=== PATIENT | female | born 1940 | race Caucasian/White ===

== ENCOUNTER 2017-12-23 05:53 | Day surgery (SDC) | payer OTHER, BC ==
[2017-12-20 15:37] VITALS: BMI 27.4
[2017-12-23] MEDS ORDERED: KETAMINE HCL 500 MG/10 ML VIAL ONE (09:23)
[2017-12-23] MEDS ORDERED: ONDANSETRON 4 MG/2 ML VIAL IVPUSH PRN (09:27)
[2017-12-23 10:38] VITALS: TEMP 97.6
[2017-12-23 12:02] VITALS: BP 138/76; PULSE 68
== END 2017-12-23 11:30 | disposition home or self-care (01) ==
LOC: FECT 05:53
PROVIDERS: ATTEND Psychiatry & Neurology Psychiatry
PROC: GZB4ZZZ Other Electroconvulsive Therapy (ICD-10-PCS; principal; 2017-12-23 07:45)
DX: F33.2 Major depressive disorder, recurrent severe without psychotic features (principal)
CPT/HCPCS: 90870; 94760

== ENCOUNTER 2017-12-30 05:49 | Day surgery (SDC) | payer OTHER, BC ==
[2017-12-26 17:58] VITALS: BMI 27.4
[2017-12-30] MEDS ORDERED: ONDANSETRON 4 MG/2 ML VIAL IVPUSH PRN (07:35)
[2017-12-30 09:01] VITALS: TEMP 98.2
[2017-12-30] MEDS ORDERED: KETAMINE HCL 500 MG/10 ML VIAL ONE (09:24)
[2017-12-30 11:39] VITALS: BP 155/75; PULSE 69
== END 2017-12-30 11:40 | disposition home or self-care (01) ==
LOC: FECT 05:49
PROVIDERS: ATTEND Psychiatry & Neurology Psychiatry
PROC: GZB4ZZZ Other Electroconvulsive Therapy (ICD-10-PCS; principal; 2017-12-30 07:45)
DX: F33.2 Major depressive disorder, recurrent severe without psychotic features (principal)
CPT/HCPCS: 90870; 94760

== ENCOUNTER 2018-01-04 05:46 | Day surgery (SDC) | payer OTHER, BC ==
[2017-12-27 09:39] VITALS: BMI 27.4
[2018-01-04] MEDS ORDERED: KETAMINE HCL 500 MG/10 ML VIAL ONE (08:30)
[2018-01-04] MEDS ORDERED: ACETAMINOPHEN 325 MG TABLET (FP) ONE (10:29)
[2018-01-04 10:46] VITALS: BP 142/70; PULSE 64; TEMP 98
== END 2018-01-04 10:47 | disposition home or self-care (01) ==
LOC: FECT 05:46
PROVIDERS: ATTEND Psychiatry & Neurology Psychiatry
PROC: GZB4ZZZ Other Electroconvulsive Therapy (ICD-10-PCS; principal; 2018-01-04 07:45)
DX: F33.2 Major depressive disorder, recurrent severe without psychotic features (principal)
CPT/HCPCS: 90870; 94760

== ENCOUNTER 2018-01-06 05:45 | Day surgery (SDC) | payer OTHER, BC ==
[2018-01-05 11:14] VITALS: BMI 27.4
[2018-01-06 08:40] VITALS: TEMP 98.1
[2018-01-06] MEDS ORDERED: KETAMINE HCL 500 MG/10 ML VIAL ONE (09:42)
[2018-01-06] MEDS ORDERED: ONDANSETRON 4 MG/2 ML VIAL ONE (09:46)
[2018-01-06] MEDS ORDERED: ACETAMINOPHEN 325 MG TABLET (FP) PO ONE (09:53)
[2018-01-06 11:18] VITALS: BP 134/75; PULSE 69
== END 2018-01-06 11:10 | disposition home or self-care (01) ==
LOC: FECT 05:45
PROVIDERS: ATTEND Psychiatry & Neurology Psychiatry
PROC: GZB4ZZZ Other Electroconvulsive Therapy (ICD-10-PCS; principal; 2018-01-06 07:45)
DX: F33.2 Major depressive disorder, recurrent severe without psychotic features (principal)
CPT/HCPCS: 90870; 94760

== ENCOUNTER 2018-01-11 05:43 | Day surgery (SDC) | payer OTHER, BC ==
[2018-01-09 16:28] VITALS: BMI 27.4
[2018-01-11] MEDS ORDERED: ACETAMINOPHEN 325 MG TABLET (FP) PO PRN (07:10)
[2018-01-11] MEDS ORDERED: KETAMINE HCL 500 MG/10 ML VIAL ONE (07:35)
[2018-01-11 09:09] VITALS: TEMP 98.2
[2018-01-11 09:48] VITALS: BP 150/78; PULSE 64
== END 2018-01-11 09:51 | disposition home or self-care (01) ==
LOC: FECT 05:43
PROVIDERS: ATTEND Psychiatry & Neurology Psychiatry
PROC: GZB4ZZZ Other Electroconvulsive Therapy (ICD-10-PCS; principal; 2018-01-11 07:15)
DX: F33.2 Major depressive disorder, recurrent severe without psychotic features (principal)
CPT/HCPCS: 90870; 94760

== ENCOUNTER 2018-01-13 05:45 | Day surgery (SDC) | payer OTHER, BC ==
[2018-01-12 13:35] VITALS: BMI 27.4
[2018-01-13] MEDS ORDERED: KETAMINE HCL 500 MG/10 ML VIAL ONE (08:35)
[2018-01-13 10:08] VITALS: TEMP 97.7
[2018-01-13 10:26] VITALS: BP 141/81; PULSE 69
== END 2018-01-13 10:55 | disposition home or self-care (01) ==
LOC: FECT 05:45
PROVIDERS: ATTEND Psychiatry & Neurology Psychiatry
PROC: GZB4ZZZ Other Electroconvulsive Therapy (ICD-10-PCS; principal; 2018-01-13 07:15)
DX: F33.2 Major depressive disorder, recurrent severe without psychotic features (principal)
CPT/HCPCS: 90870; 94760

== ENCOUNTER 2018-01-16 05:36 | Day surgery (SDC) | payer OTHER, BC ==
[2018-01-13 15:06] VITALS: BMI 27.4
[2018-01-16] MEDS ORDERED: KETAMINE HCL 500 MG/10 ML VIAL ONE (08:58)
[2018-01-16 10:29] VITALS: TEMP 97.4
[2018-01-16 13:01] VITALS: BP 128/78; PULSE 66
== END 2018-01-16 11:00 | disposition home or self-care (01) ==
LOC: FECT 05:36
PROVIDERS: ATTEND Psychiatry & Neurology Psychiatry
PROC: GZB4ZZZ Other Electroconvulsive Therapy (ICD-10-PCS; principal; 2018-01-16 07:00)
DX: F33.2 Major depressive disorder, recurrent severe without psychotic features (principal)
CPT/HCPCS: 90870; 94760

== ENCOUNTER 2018-01-23 05:35 | Day surgery (SDC) | payer OTHER, BC ==
[2018-01-18 15:28] VITALS: BMI 27.4
[2018-01-23 07:37] VITALS: TEMP 98
--- NOTE | 2018-01-23 07:41 | HP ---
Admitting History and Physical - Admission History of Present Illness: patient is a 77-year-old female, with a past medical history of anxiety, depression, hypertension, and pulmonary fibrosis. Patient presents for ECT, her last ECT was 01/20/2018. Patient has been undergoing ECT sinceJuly 2017. patient reports feeling well she reports minimal improvement to depressive symptoms since starting a ECT patient denies any suicidal or homicidal ideation. patient reports compliance with prescribed medication. Patient denies any recent illnesses or hospitalizations. History Source: Patient Limitations to Obtaining History: No Limitations - Smoking History Smoking history: Former smoker Have you smoked in the past 12 months: No If you are a former smoker, when did you quit?: S - Alcohol/Substance Use Hx Alcohol Use: No History of Substance Use: reports: None - Social History ADL: Independent History of Recent Travel: No Home Medications - Allergies Allergies/Adverse Reactions: Allergies Allergy/AdvReac Type Severity Reaction Status Date / Time No Known Drug Allergies Allergy Verified 01/06/18 08:35 - Home Medications Home Medications: Ambulatory Orders Atorvastatin Ca [Lipitor] 10 mg PO HS 12/16/17 Clonazepam 1 mg PO TID 12/16/17 Diltiazem Cd [Cardizem Cd -] 120 mg PO DAILY 12/16/17 Docusate Sodium [Colace] 100 mg PO BID 12/16/17 Lisinopril [Zestril] 5 mg PO DAILY 12/16/17 Mirtazapine [Remeron -] 15 mg PO DAILY 12/16/17 Mirtazapine [Remeron -] 30 mg PO HS 12/16/17 Multivitamin/Iron/Folic Acid [Centrum Adults Tablet] 1 each PO DAILY 12/16/17 Pantoprazole Sodium [Protonix] 40 mg PO DAILY 12/16/17 Polyethylene Glycol 3350 [Miralax 119 gm Btl -] 17 gm PO DAILY 12/16/17 Venlafaxine HCl ER [Effexor Xr -] 150 mg PO DAILY 12/16/17 Vitamin B Complex/Folic Acid [Super B Maxi Complex Caplet] 0.4 mg PO DAILY 12/16 Family Disease History - Family Disease History Family History: Denies Review of Systems - Review of Systems Constitutional: reports: No Symptoms Eyes: reports: No Symptoms HENT: reports: No Symptoms Neck: reports: No Symptoms Cardiovascular: reports: No Symptoms Respiratory: reports: No Symptoms Gastrointestinal: reports: No Symptoms Genitourinary: reports: No Symptoms Musculoskeletal: reports: No Symptoms Integumentary: reports: No Symptoms Neurological: reports: No Symptoms Endocrine: reports: No Symptoms Hematology/Lymphatic: reports: No Symptoms Psychiatric: reports: Anxiety Physical Examination Vital Signs: Vital Signs Temperature 98.0 F 01/23/18 07:33 Pulse Rate 64 01/23/18 07:33 Respiratory Rate 18 01/23/18 07:33 Blood Pressure 148/80 01/23/18 07:33 O2 Sat by Pulse Oximetry (%) 94 L 01/23/18 07:33 Constitutional: Yes: Well Nourished, No Distress, Calm Eyes: Yes: WNL, Conjunctiva Clear, EOM Intact HENT: Yes: WNL, Atraumatic, Normocephalic Neck: Yes: WNL, Supple, Trachea Midline Cardiovascular: Yes: WNL, Regular Rate and Rhythm, S1, S2 Respiratory: Yes: WNL, Regular, CTA Bilaterally Gastrointestinal: Yes: WNL, Normal Bowel Sounds, Soft ...Rectal Exam: Yes: Deferred Renal/: Yes: WNL Breast(s): Yes: WNL Musculoskeletal: Yes: WNL Extremities: Yes: WNL Edema: No Peripheral Pulses WNL: Yes Peripheral Pulses: Left Radial: 4+, Right Radial: 4+, Left Doralis Pedis: 3+, Right Dorsalis Pedis: 3+, Left Femoral: 3+, Right Femoral: 3+ Integumentary: Yes: WNL Neurological: Yes: WNL, Alert, Oriented ...Motor Strength: WNL Psychiatric: Yes: WNL, Alert, Oriented Labs: review December 19 2017 Imaging - Results EKG: Image Reviewed, Other (sinus rhythm, inferior infarct) Assessment/Plan patient is a 77-year-old female presents for a ECT, labs and EKG reviewed Patient is medically optimized for procedure
[2018-01-23] MEDS ORDERED: KETAMINE HCL 500 MG/10 ML VIAL ONE (08:09)
[2018-01-23] MEDS ORDERED: ACETAMINOPHEN 325 MG TABLET (FP) PO PRN (09:40)
[2018-01-23] MEDS ORDERED: ACETAMINOPHEN 325 MG TABLET (FP) ONE (09:40)
[2018-01-23 09:51] VITALS: BP 150/79; PULSE 66
== END 2018-01-23 10:40 | disposition home or self-care (01) ==
LOC: FECT 05:35
PROVIDERS: ATTEND Psychiatry & Neurology Psychiatry
PROC: GZB4ZZZ Other Electroconvulsive Therapy (ICD-10-PCS; principal; 2018-01-23 07:15)
DX: F33.2 Major depressive disorder, recurrent severe without psychotic features (principal)
CPT/HCPCS: 90870; 94760

== ENCOUNTER 2018-01-25 05:32 | Day surgery (SDC) | payer OTHER, BC ==
[2018-01-18 15:31] VITALS: BMI 27.4
[2018-01-25] MEDS ORDERED: KETAMINE HCL 500 MG/10 ML VIAL ONE (06:54)
[2018-01-25 08:36] VITALS: TEMP 97.8
[2018-01-25] MEDS ORDERED: ACETAMINOPHEN 325 MG TABLET (FP) ONE (08:59)
[2018-01-25 09:34] VITALS: BP 145/65; PULSE 63
[2018-01-25] MEDS ORDERED: ACETAMINOPHEN 325 MG TABLET (FP) PO PRN (10:20)
[2018-01-25] MEDS ORDERED: ONDANSETRON 4 MG/2 ML VIAL IVPUSH PRN (10:20)
[2018-01-25] MEDS ORDERED: LACTATED RINGERS SOLUTION 1,000 ML IV SCH (10:30)
== END 2018-01-25 09:30 | disposition home or self-care (01) ==
LOC: FECT 05:32
PROVIDERS: ATTEND Psychiatry & Neurology Psychiatry
PROC: GZB4ZZZ Other Electroconvulsive Therapy (ICD-10-PCS; principal; 2018-01-25 07:00)
DX: F33.2 Major depressive disorder, recurrent severe without psychotic features (principal)
CPT/HCPCS: 90870; 94760

== ENCOUNTER 2018-01-27 05:35 | Day surgery (SDC) | payer OTHER, BC ==
[2018-01-27 06:22] VITALS: BMI 29.4
[2018-01-27] MEDS ORDERED: KETAMINE HCL 500 MG/10 ML VIAL ONE (07:17)
[2018-01-27] MEDS ORDERED: ACETAMINOPHEN INJECTION 100 ML IVPB ONE (08:09)
[2018-01-27 08:58] VITALS: TEMP 97.6
[2018-01-27 09:19] VITALS: BP 155/78; PULSE 68
== END 2018-01-27 09:15 | disposition home or self-care (01) ==
LOC: FECT 05:35
PROVIDERS: ATTEND Psychiatry & Neurology Psychiatry
PROC: GZB4ZZZ Other Electroconvulsive Therapy (ICD-10-PCS; principal; 2018-01-27 07:15)
DX: F33.2 Major depressive disorder, recurrent severe without psychotic features (principal)
CPT/HCPCS: 90870; 94760; J0131

== ENCOUNTER 2018-02-03 05:38 | Day surgery (SDC) | payer OTHER, BC ==
[2018-01-25 10:06] VITALS: BMI 27.4
[2018-02-03] MEDS ORDERED: ACETAMINOPHEN INJECTION 100 ML IVPB ONE (08:29)
[2018-02-03] MEDS ORDERED: KETAMINE HCL 500 MG/10 ML VIAL ONE (08:29)
[2018-02-03 09:46] VITALS: TEMP 97.9
[2018-02-03 10:22] VITALS: BP 132/74; PULSE 66
== END 2018-02-03 10:26 | disposition home or self-care (01) ==
LOC: FECT 05:38
PROVIDERS: ATTEND Psychiatry & Neurology Psychiatry
PROC: GZB4ZZZ Other Electroconvulsive Therapy (ICD-10-PCS; principal; 2018-02-03 08:15)
DX: F33.2 Major depressive disorder, recurrent severe without psychotic features (principal)
CPT/HCPCS: 90870; 94760; J0131

== ENCOUNTER 2018-02-08 05:36 | Day surgery (SDC) | payer OTHER, BC ==
[2018-02-06 10:00] VITALS: BMI 27.4
[2018-02-08] MEDS ORDERED: KETAMINE HCL 500 MG/10 ML VIAL ONE (07:12)
[2018-02-08] MEDS ORDERED: ACETAMINOPHEN 325 MG TABLET (FP) PO ONE (08:23)
[2018-02-08 09:16] VITALS: BP 136/80; PULSE 64; TEMP 98.1
== END 2018-02-08 09:10 | disposition home or self-care (01) ==
LOC: FECT 05:36
PROVIDERS: ATTEND Psychiatry & Neurology Psychiatry
PROC: GZB4ZZZ Other Electroconvulsive Therapy (ICD-10-PCS; principal; 2018-02-08 07:15)
DX: F33.2 Major depressive disorder, recurrent severe without psychotic features (principal)
CPT/HCPCS: 90870; 94760

== ENCOUNTER 2018-02-10 05:39 | Day surgery (SDC) | payer OTHER, BC ==
[2018-02-06 10:03] VITALS: BMI 27.4
[2018-02-10] MEDS ORDERED: KETAMINE HCL 500 MG/10 ML VIAL ONE (08:01)
[2018-02-10 09:16] VITALS: TEMP 97.6
[2018-02-10 09:37] VITALS: BP 135/69; PULSE 58
== END 2018-02-10 10:00 | disposition home or self-care (01) ==
LOC: FECT 05:39
PROVIDERS: ATTEND Psychiatry & Neurology Psychiatry
PROC: GZB4ZZZ Other Electroconvulsive Therapy (ICD-10-PCS; principal; 2018-02-10 07:30)
DX: F33.2 Major depressive disorder, recurrent severe without psychotic features (principal)
CPT/HCPCS: 90870; 94760

== ENCOUNTER 2018-02-13 05:37 | Day surgery (SDC) | payer OTHER, BC ==
[2018-02-10 12:34] VITALS: BMI 27.4
[2018-02-13 06:45] VITALS: TEMP 98.1
[2018-02-13] MEDS ORDERED: KETAMINE HCL 500 MG/10 ML VIAL ONE (07:32)
[2018-02-13 09:11] VITALS: BP 144/77; PULSE 60
[2018-02-13] MEDS ORDERED: ACETAMINOPHEN 325 MG TABLET (FP) ONE (09:31)
== END 2018-02-13 09:35 | disposition home or self-care (01) ==
LOC: FECT 05:37
PROVIDERS: ATTEND Psychiatry & Neurology Psychiatry
PROC: GZB4ZZZ Other Electroconvulsive Therapy (ICD-10-PCS; principal; 2018-02-13 07:30)
DX: F33.2 Major depressive disorder, recurrent severe without psychotic features (principal)
CPT/HCPCS: 90870; 94760